=== PATIENT | female | born 2005 | race Caucasian/White ===

== ENCOUNTER 2025-07-10 20:53 | Emergency (ER) | payer SELFPAY ==
[2025-07-10] MEDS ORDERED: Ketorolac Tromethamine 30 MG (1 mL) VIAL ONE (21:37)
[2025-07-10 21:42] LABS: #Basophils 0.05 10x3/uL (0.0-0.2); #Eosinophils 0.23 10x3/uL (0.0-0.5); #Monocytes 0.72 10x3/uL (0.0-1.1); #Neutrophils 7.83 10x3/uL (1.5-8.4); %Basophils 0.4 % (0.0-2.0); %Eosinophils 1.8 % (0.0-6.0); %Lymphocytes 31.6 % (18.0-47.0); %Monocytes 5.6 % (0.0-10.0); %Neutrophils 60.4 % (40.0-75.0); Hematocrit 44.4 % (34.9-44.5); Hemoglobin 15.4 g/dL (12.0-15.5); Mean Corpuscular Hemoglobin 29.5 pg (27.0-33.0); Mean Corpuscular Volume 85.1 fL (81.6-98.3); Platelet Count 307 10x3/uL (150-450); Red Blood Cell (RBC) Count 5.22 10x6/uL (3.90-5.03); White Blood Cell (WBC) Count 12.93 10x3/uL (3.5-10.5)
[2025-07-10 21:49] LABS: ALT (SGPT) 18 U/L (Less than 34); AST (SGOT) 19 U/L (11-34); Albumin 4.3 g/dL (3.1-4.5); Alkaline Phosphatase 61 U/L (40-100); Anion Gap 11 mmol/L (10-20); BUN (Urea Nitrogen) 10 mg/dL (7.0-18.7); Bilirubin, Total 0.3 mg/dL (0.3-1.2); Calc. Creatinine Clearance 0 mL/min (70-130); Calcium 8.7 mg/dL (7.8-10.44); Carbon Dioxide 24 mmol/L (22-29); Chloride 108 mmol/L (98-107); Globulin 2.4 g/dL (2.4-3.5); Glucose 91 mg/dL (70-105); Potassium 4.1 mmol/L (3.5-5.1); Sodium 139 mmol/L (136-145)
[2025-07-10 21:55] LABS: Troponin I Less than 0.010 ng/mL (< 0.028)
[2025-07-10] MEDS ORDERED: Acetaminophen 500 MG TAB ONE (23:21)
[2025-07-10] MEDS ORDERED: Lidocaine Viscous Sol 2% 15 ml UD Cup ONE (23:22)
[2025-07-10] MEDS ORDERED: Famotidine/PF 20 mg/2ml Vial ONE (23:22)
[2025-07-10] MEDS ORDERED: Milk Of Magnesia 30 ML UDCUP ONE (23:22)
== END 2025-07-10 23:42 | disposition home or self-care (01) ==
LOC: CSHERS 20:53
DX: R07.89 Other chest pain (principal); F17.290 Nicotine dependence, other tobacco product, uncomplicated
CPT/HCPCS: 36415; 71045; 80053; 83690; 83880; 84484; 85025; 85379; 93005; 96374; 96375; J1308; J1885